=== PATIENT | male | born 1990 | race Caucasian/White ===

== ENCOUNTER 2021-05-19 12:13 | Emergency (ER) | payer MEDICAID ==
[~2021-05-19] VITALS: Ht 180.3 cm; Wt 95.3 kg
[2021-05-19 12:25] VITALS: BP_SYST 161
[2021-05-19] MEDS ORDERED: NAPR-688 PO (12:57)
[2021-05-19] MEDS ORDERED: PSEU30TA36 PO (12:57)
[2021-05-19 14:03] VITALS: BP_SYST 161
== END 2021-05-19 14:03 | disposition home or self-care (01) ==
LOC: SED 12:13
DX: J06.9 Acute upper respiratory infection, unspecified (principal); Z79.899 Other long term (current) drug therapy
CPT/HCPCS: 71045; 99283